=== PATIENT | male | born 1950 | race Caucasian/White ===

== ENCOUNTER 2017-09-15 00:34 | Day surgery (SDC) | payer MEDICARE ==
[2017-09-15] VITALS (7 sets, daily range): BP systolic 96–157; BP diastolic 65–101
[~2017-09-15] VITALS: Ht 182.9 cm; Wt 96.2 kg
--- NOTE | 2017-09-15 07:42 | Short(Outpt) Discharge Summary ---
Discharge Summary Reason for Hosp/Final Diag: (1) Encounter for screening colonoscopy Hospital Course & Plan: 1 mm polyp at 60 cm and sigmoid diverticulosis Departure Discharge to: Home Discharge Instructions Home Meds No Active Prescriptions or Reported Meds Diet: High Fiber Activity: As Tolerated OSITO TORREZ MD Sep 15, 2017 07:42
--- NOTE | 2017-09-15 07:42 | Post Operative Progress Note ---
Post Operative Progress Note Date: Sep 15, 2017 Time: 10:08 Surgeon: richard Anesthesia: dr [email or web address] Pre-Op Diagnosis: screening colonoscopy Post-Op Diagnosis: sigmoid diverticulosis and 1 mm polyp at 60 cm Procedure(s): colonoscopy and polypectomy OSITO TORREZ MD Sep 15, 2017 07:41
[2017-09-15] MEDS ORDERED: NORMOSOL R SOLN(*) 1000 ML BAG 1,000 ML IV PRN (08:45)
[2017-09-15] MEDS ORDERED: LIDOCAINE/SOD BICARB 8.4% SYR ID ONE (08:45)
[2017-09-15] MEDS ORDERED: LIDOCAINE MPF 1% 5 ML VIAL ONE (09:45)
[2017-09-15] MEDS ORDERED: PROPOFOL EMUL 10MG/ML 20 ML VL ONE (09:45)
--- NOTE | 2017-09-15 12:01 | NACHTIGAL COLONOSCOPY ---
EVENT DATE: September 15, 2017 SURGEON: Nehemias Tyler MD ANESTHESIOLOGIST: Nj Schulz M.D. ANESTHESIA: IV Sedation THERMOSPRAY OPERATOR: Staff PREOPERATIVE DIAGNOSIS Screening colonoscopy. POSTOPERATIVE DIAGNOSIS Extensive sigmoid diverticulosis and a 1 mm polyp at 60 cm. PROCEDURE PERFORMED Colonoscopy with polypectomy. DESCRIPTION OF PROCEDURE The patient was placed in the left lateral decubitus position and given intravenous sedation. The rectal examination was unremarkable The flexible colonoscope was inserted and advanced to the cecum. He had an excellent bowel prep. The ileocecal valve, base of the cecum and appendiceal orifice were identified. The scope was slowly withdrawn. No mucosal abnormalities were noted in the cecum. We took care to look behind the haustral folds. No abnormalities were noted in the right colon, transverse colon or descending colon. At 60 cm, he had a 1 mm polypoid projection. This was removed with cold cup. In the sigmoid colon, he had extensive diverticulosis. No evidence of diverticulitis. The rectum was normal. The scope was retroflexed and that appeared to be normal. The patient will need a repeat colonoscopy in five years if this polyp, indeed, is adenomatous. MTDNichelle
== END 2017-09-15 11:05 | disposition home or self-care (01) ==
LOC: OR 00:34
PROVIDERS: ATTEND Surgery
DX: Z12.11 Encounter for screening for malignant neoplasm of colon (principal); K63.5 Polyp of colon; K57.30 Diverticulosis of large intestine without perforation or abscess without bleeding
CPT/HCPCS: 00811; 45380; 88305; J2001; J2704